=== PATIENT | female | born 1960 | race Two or more races ===

== ENCOUNTER 2016-09-08 16:47 | Emergency (ER) | payer BC, OTHER ==
[~2016-09-08] VITALS: Ht 154.9 cm; Wt 64.1 kg
[2016-09-08 17:24] VITALS: BP 143/94
[2016-09-08] MEDS ORDERED: EZET10TA3 PO (18:18)
[2016-09-08] MEDS ORDERED: FENO135C4 PO (18:18)
[2016-09-08] MEDS ORDERED: ESTR0.3T PO (18:18)
[2016-09-08] MEDS ORDERED: FAMO1TAB25 PO (18:21)
[2016-09-08 18:24] LABS: ASPARTATE AMINO TRANSFERASE 19 U/L (15-37); BLOOD UREA NITROGEN 12 mg/dL (7-18)
[2016-09-08 18:29] LABS: IS PT STATUS REG ER OR PRE ER? YES
== END 2016-09-08 19:23 | disposition home or self-care (01) ==
LOC: ED 19:13
DX: R07.89 Other chest pain (principal); R11.0 Nausea
CPT/HCPCS: 36415; 71020; 80053; 83690; 84484; 85025; 93005